=== PATIENT | male | born 1945 | race Caucasian/White ===

== ENCOUNTER 2017-03-28 05:49 | Inpatient (IN) | payer OTHER, BC ==
[2017-03-28] MEDS ORDERED: POVIDONE-IODINE 20 ML in SODIUM CL IRRIG SOLUTION 500 ML IRR ONE (06:00)
[2017-03-28] MEDS ORDERED: ROPIVACAINE 0.2% 80 MG, EPINEPHrine 0.2 MG, KETOROLAC TROMETHAMINE 30 MG in BAG 0 ML IU ONE (06:00)
[2017-03-28] MEDS ORDERED: TRANEXAMIC ACID 1,700 MG in NS 100 ML IV ONE (06:00)
[2017-03-28] MEDS ORDERED: ACETAMINOPHEN 325 MG TAB PO ONE (06:05)
[2017-03-28] MEDS ORDERED: DEXAMETHASONE 4 MG/ML VIAL IVP ONE (06:05)
[2017-03-28] MEDS ORDERED: FAMOTIDINE 20 MG TAB PO ONE (06:05)
[2017-03-28] MEDS ORDERED: ceFAZolin 2 GM/DEXTROSE 100 ML IV ONE (06:05)
[2017-03-28] MEDS ORDERED: LR 1,000 ML IV ONE (06:06)
[2017-03-28] MEDS ORDERED: LIDOCAINE 1% 2 ML INJ ID PRN (06:06)
[2017-03-28] MEDS ORDERED: LIDOCAINE 1% 2 ML INJ ONE (06:11)
[2017-03-28] MEDS ORDERED: ceFAZolin 1 GM/5 ML SYR ONE (06:52)
[2017-03-28] MEDS ORDERED: MIDAZOLAM 2 MG/2 ML VIAL IVP ONE (07:03)
[2017-03-28] MEDS ORDERED: MIDAZOLAM 2 MG/2 ML VIAL ONE ×2 (07:04→07:13)
--- NOTE | 2017-03-28 07:05 | PDANEPAE ---
ANE Past Medical History - Cardiovascular History Hx Hypertension: No Hx Arrhythmias: No Hx Chest Pain: No Hx Coronary Artery / Peripheral Vascular Disease: No Hx CHF / Valvular Disease: No Hx Palpitations: No - Pulmonary History Hx COPD: No Hx Asthma/Reactive Airway Disease: No Hx Recent Upper Respiratory Infection: No Hx Oxygen in Use at Home: No Hx Sleep Apnea: Yes Sleep Apnea Screening Result - Last Documented: Positive Pulmonary History Comment: PREV TEST FOR RASHAUN UNKNOWN RESULTS 2011 - Neurologic History Hx Cerebrovascular Accident: No Hx Seizures: No Hx Dementia: No - Endocrine History Hx Diabetes: No - Renal History Hx Renal Disorders: Yes Renal History Comment: BPH. KIDNEY STONES PASSED - Liver History Hx Hepatic Disorders: No - Neurological & Psychiatric Hx Hx Neurological and Psychiatric Disorders: No - Cancer History Hx Cancer: No - Congenital Disorder History Hx Congenital Disorders: No - GI History Hx Gastrointestinal Disorders: Yes Gastrointestinal History Comment: GERD - Other Health History Other Health History: OSTEOARTHRITIS - Chronic Pain History Chronic Pain: Yes (RT HIP) - Surgical History Prior Surgeries: LT HIP RESURFACING. TRINO TOTAL KNEE 04/2014. CERVICAL FUSION. RT SHLDR. LT KNEE SCOPE. APPENDECTOMY. LT INDEX FINGER ANE Patient History - Allergies Allergies/Adverse Reactions: hydrocodone Adverse Reaction (Mild, Verified 03/28/17 06:34) GI UPSET - Home Medications Home Medications: Aspirin [Aspirin 81mg (*)] 81 mg PO HS 03/14/17 [Last Taken 03/21/17 08:00] Herbals/Supplements -Info Only 1 ea PO DAILY 03/14/17 [Last Taken 03/21/17 08:00 ] Pantoprazole Sodium [Protonix] 20 mg PO DAILY AT 10AM 03/14/17 [Last Taken 03/27 08:00] - NPO status NPO Since - Liquids (Date): 03/27/17 NPO Since - Liquids (Time): 22:30 NPO Since - Solids (Date): 03/27/17 NPO Since - Solids (Time): 14:00 - Smoking Hx Smoking Status: Never smoked ANE Labs/Vital Signs - Vital Signs Blood Pressure: 121/73 Heart Rate: 77 Respiratory Rate: 16 O2 Sat (%): 95 Height: 177.8 cm Weight: 83.915 kg ANE Physical Exam - Airway Neck exam: decreased ROM - Pulmonary Pulmonary: no respiratory distress - Cardiovascular Cardiovascular: regular rate and rhythym - ASA Status ASA Status: II (fused neck c3 to c5)
--- NOTE | 2017-03-28 07:09 | PDHPUP ---
History & Physical Update H&P update statement: This history and physical update is based on an assessment of the patient which was completed after admission or registration (within 24 hours), but prior to the surgery/procedure. H&P update: H&P reviewed & patient examined, no change in patient's condition since H&P completed
[2017-03-28] MEDS ORDERED: PROPOFOL/EMULSION 500 MG/50 ML BOTTLE IV ONE (07:14)
[2017-03-28] MEDS ORDERED: ONDANSETRON 4 MG/2 ML VIAL IVP PRN ×2 (08:01→09:28)
[2017-03-28] MEDS ORDERED: NALOXONE HCL 0.4 MG/ML INJ IVP PRN (08:01)
--- NOTE | 2017-03-28 08:48 | POSTOPPROG ---
Post Op Note Date of Operation: 03/28/17 Surgeon: Quique Baltazar Football Scout: Alex Naranjo/Leilani Padilla Anesthesiologist: Ayan Bear Anesthesia: IV Sedation, Spinal Post-op Diagnosis: Right hip advanced degenerative Procedure: Right total hip arthroplasty. Inf/Abcess present in the surg proc area at time of surgery?: No EBL: 100-500
[2017-03-28] MEDS ORDERED: TEMAZEPAM 15 MG CAP PO PRN (09:28)
[2017-03-28] MEDS ORDERED: BISACODYL 10 MG SUPP PR PRN (09:28)
[2017-03-28] MEDS ORDERED: diphenhydrAMINE 25 MG CAP PO PRN (09:28)
[2017-03-28] MEDS ORDERED: MAGNESIUM HYDROXIDE 30 ML UDCUP PO PRN (09:28)
[2017-03-28] MEDS ORDERED: PROMETHAZINE HCL 25 MG SUPPR PR PRN (09:28)
[2017-03-28] MEDS ORDERED: POLYETHYLENE GLYCOL 3350 17 GM PKT PO PRN (09:28)
[2017-03-28] MEDS ORDERED: LACTULOSE 20 GM/30 ML UDCUP PO PRN (09:28)
[2017-03-28] MEDS ORDERED: PROMETHAZINE HCL 25 MG/ML INJ IVP PRN (09:28)
[2017-03-28] MEDS ORDERED: ONDANSETRON DISINTEGRATING 4 MG TAB PO PRN (09:28)
[2017-03-28] MEDS ORDERED: CYCLOBENZAPRINE 10 MG TAB PO PRN (09:28)
[2017-03-28] MEDS ORDERED: METOCLOPRAMIDE 10 MG/2 ML VIAL IVP PRN (09:28)
[2017-03-28] MEDS ORDERED: DIPHENOXYLATE/ATROPINE LOMOTIL 1 TAB PO PRN (09:28)
[2017-03-28] MEDS ORDERED: LR 1,000 ML IV SCH (09:30)
--- NOTE | 2017-03-28 10:45 | GOP ---
[f rep st] OPERATIVE REPORT DATE OF OPERATION: 03/28/2017 SURGEON: Quique Baltazar MD DOCTOR OF CHIROPRACTIC: Alex Naranjo and Leilani Padilla. ANESTHESIA: Is a combination of Marcaine, spinal, and IV sedation. ANESTHESIOLOGIST: Ayan Bear M.D. PREOPERATIVE DIAGNOSIS: Right hip severe degenerative arthritis. POSTOPERATIVE DIAGNOSIS: Right hip severe degenerative arthritis. PROCEDURE PERFORMED: Right total hip arthroplasty, Oxinium femoral head on highly cross-linked poly ethylene cup liner. FINDINGS: ESTIMATED BLOOD LOSS: About 300 mL. I used a Gao [employer] Nephew R3 hemispherical solid-backed acetabular shell with an outside diameter of 54 mm. The liner was a Gao [employer] Nephew R3 20-degree lipped highly cross-linked liner with an insi de diameter of 36 mm. The femoral component was a press-fit Gao and Nephew standard offset Synerg y stem in a size 13. The femoral head was a Gao and Nephew Oxinium head with a +4 mm neck length and a 36 mm outside diameter. Alex Naranjo and Leilani Padilla acted as surgical assistants. Their assistance was a medical necess ity for safe completion of the procedure. DESCRIPTION OF PROCEDURE: The patient was given 2 g of IV Ancef preoperatively within 60 minutes of surgery. He also received IV tranexamic acid at a dose of 20 mg/kg. [facility] and given spinal anesthesia with Marcaine by Dr. Bear. He was then placed supine and given IV sedation. A Funez catheter was not used. He wore a STEFANO stocking and SCD on the nonoperat alona leg. He was rolled to the left lateral decubitus position. The position was secured with the p egboard table attachment. An axillary roll was used and all pressure points were carefully padded. I was careful to lock his pelvis in a rigid vertical position. His perineum was isolated with plas tic adhesive drapes. The right hip and right lower extremity were prepped with ChloraPrep. They we re draped free using sterile sheets, stockinette, and Ioban plastic drapes. The [facility] z[facility] time-out was performed to verify the correct surgical side and the correct patient identity. The [place] time-out was also performed. I made a 5-inch straight oblique posterolateral hip skin incision. Subcutaneous tissues were sharpl y divided and hemostasis was obtained using electrocautery. A small portion of the proximal end of his fascia radha was identified and split along the axis of its fibers. I then curved posteriorly an d proximally, and split the fascia of the gluteus ba and bluntly split the muscle fibers in fiona e with their orientation. The Charnley self-retaining retractor was inserted. His sciatic nerve wa s located, partially exposed, and protected throughout the procedure. The external rotators and the posterior hip capsule were divided as separate layers at the base of the femoral neck, tagged, and reflected posteriorly. A smooth 1/8-inch Steinmann pin was inserted vertically into the ilium super ior to the acetabulum. A 1/8-inch drill bit was inserted vertically into the greater trochanter and parallel to the first pin. The distance between the 2 was measured for leg length reference. His femoral head was dislocated posteriorly. The femoral neck was osteotomized at the appropriate level and inclination. I was careful to preserve all the posterior capsule and most of the anterior caps ule. The remnant of his damaged labrum was excised. I prepared the femur first. This allowed me to electrical panel builder the amount of natural femoral neck anteversion . This, in turn, allowed me to determine the correct amount of cup anteversion. He had approximate ly 10 degrees of natural femoral neck anteversion. The canal was opened laterally with a box chisel . I reamed and broached sequentially up to size 13. I used a size 13 broach as a trial stem. I wa s careful to lateralize adequately. Appropriate retractors were inserted to expose the acetabulum. The acetabulum was reamed sequentially up to 53 mm. I selected a 54 mm Gao and Nephew solid back ed hemispherical shell. This was tapped securely into place in the proper degree of inclination and anteversion. I used the transverse acetabular ligament and other acetabular bony landmarks to help me properly orient the cup. Supplemental fixation screws were not necessary. I inserted a screw-i n metal dome hole plug. I performed a series of trial reductions to determine length and stability. I concluded that the si ze 13 stem with a +4 mm neck length, a 36 mm head and a 20 degree lipped liner gave me the proper co mbination of appropriate length and good anterior and posterior stability. I recognized that I migh t be lengthening him a few millimeters. However, I felt that was necessary in order to achieve adeq uate stability. The 20 degree lipped Gao and Nephew R3 highly cross-linked polyethylene liner was inserted and tapped securely into place. I chose the Gao and Nephew Synergy stem in a size 13 wi th standard offset. This was inserted press-fit and was very tight. I did one final trial reductio n and confirmed that the +4 mm neck length with a 36 mm head was the proper combination. The Gao and Nephew Oxinium head with an outside diameter of 36 mm and a neck length of +4 mm was tapped secu rely onto the clean trunnion. The acetabulum was irrigated and cleaned, and the hip was reduced one final time. He had excellent anterior and posterior stability and appropriate length. 40 mL of a joint anesthetic cocktail was injected into the capsule, the deep musculature, and the subcutaneous tissues around the skin edges. The joint was thoroughly irrigated one final time with a dilute Beta dine solution. His sciatic nerve was reinspected and looked unharmed. The external rotators and the posterior hip capsule were repaired in separate layers with #2 FiberWi re sutures through drill holes in the greater trochanter. The fascia radha was closed first with a c ouple of interrupted [id number] #2 FiberWire sutures followed by a running #[address] ratafix PDO suture. Subcutaneous tissues were closed with a running 0 barbed Ethicon Stratafix [place] derm suture. The skin was closed with a running 3-0 barbed Ethicon Stratafix Monoderm subcuticular suture. The skin edges were reapproximated and sealed with Dermabond glue. The wound was covered w ith a strip of Telfa and everything was held in place with a piece of clear plastic Tegaderm. A tylor g-leg STEFANO stocking and SCD were applied to his right lower extremity. He wore a stocking and SCD on the opposite leg during the procedure. An abduction pillow was placed between his knees. He was a wakened from anesthesia and rolled to the supine position on his [facility]. He was taken to [facility] PACU in satisfactory condition. COMPLICATIONS: There were no recognized intraoperative complications. /[id number]/MODL
--- NOTE | 2017-03-28 10:54 | POSTANESTH ---
Post Anesthetic Evaluation Cardiovascular Status: Normal, Stable Respiratory Status: Normal, Stable Level of Consciousness/Mental Status: Can Participate in Eval Pain Control: Adequate, Prn Tx Ordered Complications Possibly Related to Anesthesia: None Noted (prompt wake up)
[2017-03-28] MEDS: TRANEXAMIC ACID 650 MG TAB PO SCH ×2 (11:59→17:54)
[2017-03-28] MEDS: ACETAMINOPHEN 325 MG TAB PO SCH ×3 (12:38→23:51)
[2017-03-28] MEDS: ceFAZolin 2 GM/DEXTROSE 100 ML IV SCH ×2 (13:47→22:08)
[2017-03-28] MEDS: oxyCODONE IR 5 MG TAB PO PRN ×3 (16:13→22:07)
[2017-03-28] MEDS: ASPIRIN 325 MG TAB PO SCH (22:07)
[2017-03-28] MEDS: FAMOTIDINE 20 MG TAB PO SCH (22:08)
[2017-03-28] MEDS: SENNOSIDES/DOCUSATE SODIUM TAB PO SCH (22:08)
[2017-03-29] MEDS: TRANEXAMIC ACID 650 MG TAB PO SCH (02:02)
[2017-03-29 05:18] LABS: HEMATOCRIT 37.2 % (40.0-51.0); HEMOGLOBIN 13.3 g/dL (13.7-17.5)
[2017-03-29] MEDS: ACETAMINOPHEN 325 MG TAB PO SCH ×2 (05:31→11:02)
--- NOTE | 2017-03-29 07:30 | SOAPPROG ---
SOAP Progress Note Assessment/Plan: Assessment: Afebrile. Awake and alert. Moderate pain. He has been up and walking in the urena already. Voiding spontaneously. Sciatic nerve intact. Postop films look excellent. His dressing is dry. Plan: Up with physical therapy today. Discharged later today. 03/29/17 07:29 Objective: Vital Signs Temp Pulse Resp BP Pulse Ox 36.9 C 90 16 102/63 94 03/29/17 04:00 03/29/17 04:00 03/29/17 04:00 03/29/17 04:00 03/29/17 04:00 Laboratory Results 03/29/17 04:41 03/28/17 03/29/17 03/30/17 05:59 05:59 05:59 Intake Total 3350 Output Total 1700 Balance 1650 ICD10 Worksheet Patient Problems: Problems Problem Status Onset Osteoarthritis of right hip Acute
[2017-03-29 07:31] VITALS: BP 113/68; PULSE 88; RESP 92; TEMP 97.9
[2017-03-29] MEDS ORDERED: FERROUS SULFATE 140 MG TAB.ER PO SCH (09:00)
[2017-03-29 09:05] VITALS: O2SAT 92
[2017-03-29] MEDS: ASPIRIN 325 MG TAB PO SCH (09:19)
[2017-03-29] MEDS: SENNOSIDES/DOCUSATE SODIUM TAB PO SCH (09:19)
[2017-03-29] MEDS: FAMOTIDINE 20 MG TAB PO SCH (09:19)
--- NOTE | 2017-03-29 14:33 | GDS ---
[f rep st] DISCHARGE SUMMARY ADMISSION DIAGNOSIS: Right hip severe degenerative arthritis. DISCHARGE DIAGNOSES: Right hip severe degenerative arthritis. OPERATIONS PERFORMED: On 03/28/2017, right total hip arthroplasty. POSTOPERATIVE COMPLICATIONS: None. CONDITION ON DISCHARGE: Improved. DESCRIPTION OF HOSPITAL COURSE: The patient was admitted to the hospital the morning of surgery. H is admission CBC was normal. The same day, under a combination of Marcaine, spinal anesthesia and I V sedation, he underwent a right total hip arthroplasty. Postoperatively, he was treated with multi modal DVT prophylaxis, including aspirin and early mobilization. He was seen by Physical Therapy an d made good progress with ambulation and stairs. On the first postoperative day, his hemoglobin and hematocrit were 13.3 and 37.2. By the time of discharge, he was afebrile, and his wound was clean and dry. DISPOSITION: The patient was discharged to his home. He will go to outpatient physical therapy. H e may progress to full weightbearing on the right as tolerated. Use STEFANO stockings for 1 week. Cont inue aspirin 325 mg p.o. daily for 21 days. I will see him back in the office on April 19, 2017; if any problems, he is to call me at the office. He has prescriptions for oxycodone and tramadol f or pain control. /[id number]/MODL
== END 2017-03-29 12:16 | disposition home or self-care (01) | DRG 470 ==
LOC: F3N 05:49
PROVIDERS: ADMIT Orthopaedic Surgery; ATTEND Orthopaedic Surgery
PROC: 0SR904A Replacement of Right Hip Joint with Ceramic on Polyethylene Synthetic Substitute, Uncemented, Open Approach (ICD-10-PCS; principal; 2017-03-28 07:15)
DX: M16.11 Unilateral primary osteoarthritis, right hip (principal); N40.0 Benign prostatic hyperplasia without lower urinary tract symptoms; K21.9 Gastro-esophageal reflux disease without esophagitis; Z96.653 Presence of artificial knee joint, bilateral; Z98.1 Arthrodesis status
CPT/HCPCS: 97116-GP; 97161-GP; 97165-GO; G8978-GP-CJ; G8979-GP-CI; G8980-GP-CI; G8987-GO-CI; G8988-GO-CI; G8989-GO-CI; J0171; J0690; J1100; J1885; J2250; J2704; J2795